=== PATIENT | female | born 1985 | race African-American/Black ===

== ENCOUNTER 2023-01-24 20:52 | Emergency (ER) | payer OTHER, SELFPAY ==
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
[2023-01-24 20:57] VITALS: BP 137/87; PULSE 82; RESP 16; TEMP 36.6; O2SAT 100
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
[2023-01-24 22:04] LABS: Basophils Absolute Auto 0.1 K/mm3 (0.0-0.1); Eosinophils Absolute Auto 0.2 K/mm3 (0-0.3); Eosinophils Percent Auto 2.1 % (0-4.4); Hematocrit 25.6 % (37.0-47.0); Hemoglobin 7.4 g/dL (12.0-15.0); Immature Granulocyte Absolute 0.01 K/mm3 (0.00-0.031); Immature Granulocyte Percent A 0.1 % (0-0.5); Lymphocytes Absolute Auto 3.09 K/mm3 (0.9-3.2); Lymphocytes Percent Auto 37.4 % (18.3-44.2); Mean Corpuscular HGB Conc 28.9 g/dl (32-36); Mean Corpuscular Hemoglobin 18.4 pg (26-34); Mean Corpuscular Volume 63.5 fl (80-100); Mean Platelet Volume 9.4 fl (7.4-10.4); Monocytes Absolute Auto 0.5 K/mm3 (0.1-0.6); Monocytes Percent Auto 5.9 % (2.6-8.5); Neutrophils Absolute Auto 4.4 K/mm3 (1.3-6.7); Neutrophils Percent Auto 53.5 % (45.5-73.1); Platelet Count Result 483 k/mm3 (150-375); Red Blood Count 4.03 M/mm3 (4.2-5.4); Red Cell Distribution Width 20.4 % (11.5-14.5); White Blood Count 8.3 K/mm3 (4.5-10.0)
[2023-01-24 22:14] LABS: Alanine Aminotransferase 19 U/L (6-35); Albumin Level 4.5 g/dL (3.5-5.1); Alkaline Phosphatase 66 U/L (38-126); Anion Gap 9 mmol/L (8-16); Aspartate Amino Transferase 22 U/L (14-36); Bilirubin,Total 0.3 mg/dL (0.2-1.3); Blood Urea Nitrogen 12 mg/dL (7-17); Calcium 9.3 mg/dL (8.4-10.2); Carbon Dioxide 28 mmol/L (22-30); Chloride 106 mmol/L (98-107); Estimated CRCL calculation 131 ml/min; Estimated Glomerular Filt Rate > 60; Glucose 123 mg/dL (65-110); Potassium 3.4 mmol/L (3.4-5.0); Sodium 143 mmol/L (137-145)
[2023-01-24 22:18] LABS: Platelet Estimate Increased (Adequate)
[2023-01-24 22:20] LABS: Anisocytosis 3+ (NORMAL); Hypochromasia 1+ (NORMAL); Microcytosis 1+ (NORMAL); Schistocytes Rare (NORMAL)
== END 2023-01-24 23:31 | disposition home or self-care (01) ==
PROVIDERS: Emergency Provider Physician Assistant
DX: R10.30 Lower abdominal pain, unspecified (principal); D64.9 Anemia, unspecified; M79.642 Pain in left hand; V49.40XA Driver injured in collision with unspecified motor vehicles in traffic accident, initial encounter
CPT/HCPCS: 36415; 70450; 73130; 74177; 80053; 85025; 99284; Q9967

== ENCOUNTER 2023-09-22 20:02 | Emergency (ER) | payer OTHER, SELFPAY ==
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
--- NOTE | 2023-09-22 20:14 | ECG_ITS ---
Measurements Intervals [place] Rate: 67 P: 46 [place]: 148 QRS: -6 QRSD: 89 T: 25 QT: 387 QTc: 410 Interpretive Statements SINUS RHYTHM NO PREVIOUS ECG AVAILABLE FOR COMPARISON Electronically Signed On 09-24-2023 10:15:41 JOB SITE SUPERVISOR by Richy Martinez M.D.
[2023-09-22 20:15] VITALS: BP 148/88; PULSE 73; RESP 20; TEMP 35.9; O2SAT 100
[2023-09-22 20:41] LABS: Basophils Absolute Auto 0.1 K/mm3 (0.0-0.1); Basophils Percent Auto 1.1 % (0.2-1.2); Eosinophils Absolute Auto 0.1 K/mm3 (0-0.3); Eosinophils Percent Auto 1.5 % (0-4.4); Hematocrit 30.3 % (37.0-47.0); Hemoglobin 8.4 g/dL (12.0-15.0); Immature Granulocyte Absolute 0.01 K/mm3 (0.00-0.031); Immature Granulocyte Percent A 0.1 % (0-0.5); Immature Platelet Fraction Pct 3.3 % (0.9-11.2); Lymphocytes Absolute Auto 2.55 K/mm3 (0.9-3.2); Lymphocytes Percent Auto 31.3 % (18.3-44.2); Mean Corpuscular HGB Conc 27.7 g/dl (32-36); Mean Corpuscular Hemoglobin 19.3 pg (26-34); Mean Corpuscular Volume 69.7 fl (80-100); Mean Platelet Volume 9.5 fl (7.4-10.4); Monocytes Absolute Auto 0.4 K/mm3 (0.1-0.6); Monocytes Percent Auto 5.2 % (2.6-8.5); Neutrophils Percent Auto 60.8 % (45.5-73.1); Platelet Count Result 436 k/mm3 (150-375); Red Blood Count 4.35 M/mm3 (4.2-5.4); Red Cell Distribution Width 30.6 % (11.5-14.5); White Blood Count 8.2 K/mm3 (4.5-10.0)
[2023-09-22 20:51] LABS: Alanine Aminotransferase 18 U/L (6-35); Albumin Level 4.1 g/dL (3.5-5.1); Alkaline Phosphatase 63 U/L (38-126); Anion Gap 8 mmol/L (8-16); Aspartate Amino Transferase 25 U/L (14-36); Bilirubin,Total 0.2 mg/dL (0.2-1.3); Blood Urea Nitrogen 7 mg/dL (7-17); Calcium 9.1 mg/dL (8.4-10.2); Carbon Dioxide 24 mmol/L (22-30); Chloride 104 mmol/L (98-107); Estimated CRCL calculation 127 ml/min; Estimated Glomerular Filt Rate > 60; Glucose 100 mg/dL (65-110); Lipase 55 U/L (23-300); Potassium 3.6 mmol/L (3.4-5.0); Sodium 136 mmol/L (137-145)
[2023-09-22 21:00] LABS: Partial Thromboplastin Time 27.5 SECONDS (22.3-36.8)
[2023-09-22 21:01] LABS: INR 1.1; Prothrombin Time 14.2 Seconds (11.1-14.7)
[2023-09-22 21:02] LABS: Troponin I < 0.012 ng/mL (0.000-0.034)
[2023-09-22 21:19] LABS: Hypochromasia 1+ (NORMAL); Platelet Estimate Increased (Adequate)
[2023-09-22 21:20] LABS: Anisocytosis 3+ (NORMAL); Schistocytes None Seen (NORMAL); Target Cells 1+ (NORMAL)
[2023-09-22 21:51] VITALS: PULSE 60
[2023-09-22 21:52] VITALS: O2SAT 100
--- NOTE | 2023-09-22 23:05 | ECG_ITS ---
Measurements Intervals [place] Rate: 53 P: 40 SC: 150 QRS: -1 QRSD: 99 T: 25 QT: 430 QTc: 406 Interpretive Statements SINUS BRADYCARDIA WITH SINUS ARRHYTHMIA COMPARED TO ECG 09/22/2023 20:14:10 SINUS BRADYCARDIA NOW PRESENT SINUS ARRHYTHMIA NOW PRESENT Electronically Signed On 09-24-2023 10:17:02 BUSINESS EMPLOYMENT SPECIALIST by Richy Martinez M.D.
[2023-09-22 23:36] VITALS: BP 155/102; PULSE 67; RESP 21; O2SAT 99
[2023-09-22 23:52] LABS: Troponin I < 0.012 ng/mL (0.000-0.034)
--- NOTE | 2023-09-23 00:27 | ED.GENADULT ---
HPI - General Adult General Chief complaint: Chest Pain Stated complaint: chest pressure after iron infusion monday Time Seen by Provider: 09/22/23 22:14 History of Present Illness HPI narrative: This is a 37-year-old female with history of iron deficiency anemia presenting 2 days after iron infusion. Patient says at the time of her infusion she developed some hives and muscle pain. These resolved with Benadryl and Tylenol. Yesterday she felt well but today she notes that she had a little bit of chest tightness. Due to the infusion reaction she had she is being very concerned which made her chest tightness worse. She then came to hospital for evaluation. At this time the patient is symptom free and has follow-up with her doctor on Monday. No chest pain difficulty breathing throat swelling skin changes abdominal pain nausea vomiting diarrhea Related Data Allergies Allergy/AdvReac Type Severity Reaction Status Date / Time No Known Allergies Allergy Verified 04/03/16 15:46 [facility] Past Medical History Medical History No pertinent past medical history Surgical History Surgical History No pertinent past surgical history Social History Social History Smoking status: Never smoker Exam Narrative: APPEARANCE: No apparent distress. Head: atraumatic. EYES: EOMI, NOSE: Atraumatic NECK: Trachea midline RESPIRATORY: No increased rate of breathing, CTAB CARDIOVASCULAR: RRR, no peripheral edema ABDOMINAL: Non-distended, soft nontender MUSCULOSKELETAl: No obvious deformities NEURO: Alert. Moving 4/4 extremities SKIN:: Warm, dry. Normal color, no rashes or hives PSYCHIATRIC: Normal affect Course Vital Signs Vital signs: Vital Signs Temperature 96.7 F L 09/22/23 20:15 Pulse Rate 73 09/22/23 20:15 Respiratory Rate 20 09/22/23 20:15 Blood Pressure 148/88 H 09/22/23 20:15 Pulse Oximetry 100 09/22/23 20:15 Oxygen Delivery Room Air 09/22/23 20:15 Temperature 96.7 F L 09/22/23 20:15 Pulse Rate 67 09/22/23 23:36 Respiratory Rate 21 H 09/22/23 23:36 Blood Pressure 155/102 H 09/22/23 23:36 Pulse Oximetry 99 09/22/23 23:36 Oxygen Delivery Room Air 09/22/23 21:52 Medical Decision Making MDM Narrative Medical decision making narrative: -Course: The 37-year-old female presenting 2 days after an iron infusion. She had some reactions at the time of the infusion but appears to be doing well otherwise. He had some chest tightness earlier today which prompted her to come the emergency department. NOS. At the time of my interview she is symptom free and requesting to go home. Her chest x-ray EKG and lab work were all within normal limits. Vital signs stable and she is well appearing. Patient has close follow-up with primary care physician patient will be discharged with return precautions. -DDX includes but is not limited to: Infusion reaction, viral illness, anxiety, ACS pneumonia, pneumothorax -Co-morbidities complicating care: Anemia requiring iron transfusion -Independent interpretation of studies: Laboratories including troponins negative. Chest x-ray unremarkable. Independent EKG interpretation: Rhythm [sinus], Rate [67], [place] -[normal], [place] -[normal], QRS [narrow], QTC [normal], T waves -[negative for concerning inversions], ST Segments - [Negative for concerning elevations] Final interpretations: [Normal Sinus Rhythm] -Shared decision making / Disposition: Discharged Vital Signs Vital Signs: Vital Signs Temperature 96.7 F L 09/22/23 20:15 Pulse Rate 73 09/22/23 20:15 Respiratory Rate 20 09/22/23 20:15 Blood Pressure 148/88 H 09/22/23 20:15 Pulse Oximetry 100 09/22/23 20:15 Oxygen Delivery Room Air 09/22/23 20:15 Temperature 96.7 F L 09/22/23 20:15 Pulse Rate 67 09/22/23 23:36
[2023-09-23 00:39] VITALS: BP 132/80; PULSE 61; RESP 12; TEMP 36.7; O2SAT 100
== END 2023-09-23 00:40 | disposition home or self-care (01) ==
PROVIDERS: Emergency Provider Emergency Medicine
DX: R07.89 Other chest pain (principal); D50.9 Iron deficiency anemia, unspecified; R00.1 Bradycardia, unspecified
CPT/HCPCS: 36415; 71046; 80053; 83690; 84484; 85025; 85055; 85610; 85730; 93005; 99284

== ENCOUNTER 2024-01-05 07:35 | Outpatient (CLI) | payer OTHER, SELFPAY ==
--- NOTE | ~2024-01-05 | MM_ITS ---
EXAMINATION: MM screening pat BI w denny HISTORY: Screening TECHNIQUE: Craniocaudal and mediolateral oblique 3-D tomosynthesis images were obtained and synthetic 2-D images were generated. CAD analysis was submitted and interpreted. COMPARISON: 11/08/2012 BREAST PARENCHYMAL COMPOSITION: Not dense: There are scattered areas of fibroglandular density. FINDINGS: There is no evidence of suspicious mass, calcification, or architectural distortion to sugg est malignancy in either breast. There has been no suspicious interval change. IMPRESSION: 1. No mammographic evidence of malignancy. 2. Recommend routine screening mammography in one year. BI-RADS Category 1: Negative Reviewed, dictated and finalized at location A.
== END 2024-01-05 07:36 | disposition home or self-care (01) ==
LOC: ANHIMG 07:36
PROVIDERS: PCP Internal Medicine; Visit Provider Internal Medicine
DX: Z12.31 Encounter for screening mammogram for malignant neoplasm of breast (principal)
CPT/HCPCS: 77063; 77067

== ENCOUNTER 2025-06-03 08:45 | Outpatient (CLI) | payer OTHER, SELFPAY ==
--- NOTE | ~2025-06-03 | MMUS_ITS ---
EXAMINATION: MM diagnostic pat BI w denny, US breast RT limited HISTORY: Right breast mass TECHNIQUE: 3-D tomosynthesis images of the breasts were performed and synthetic 2-D images were generated. CAD analysis was submitted and interpreted. High resolution limited right breast ultrasound was performed. COMPARISON: 01/05/2024 BREAST PARENCHYMAL COMPOSITION:Not Dense. There are scattered areas of fibroglandular density. FINDINGS: MAMMOGRAPHIC FINDINGS: Mammographic pattern of the breasts is unchanged. No suspicious mass lesion or distortion. No suspicious microcalcifications. ULTRASOUND: No sonographic correlate seen in the 6:00 position region of the right breast at the area of palpable concern. IMPRESSION: No evidence for malignancy. No mammographic or sonographic correlate seen at the area of clinical concern in the right breast. BI-RADS Category 1: Negative Reviewed, dictated and finalized at [facility]. IMPRESSION: No evidence for malignancy. No mammographic or sonographic correlate seen at t he area of clinical concern in the right breast. BI-RADS Category 1: Negative
== END 2025-06-03 08:46 | disposition home or self-care (01) ==
LOC: MICIMG 08:46
PROVIDERS: PCP Internal Medicine; Visit Provider Internal Medicine
DX: N63.10 Unspecified lump in the right breast, unspecified quadrant (principal)
CPT/HCPCS: 76642; 77062; 77066; G0279